=== PATIENT | female | born 1950 | race Two or more races ===

== ENCOUNTER 2023-01-01 20:00 | Emergency (ER) | payer MEDICARE, OTHER ==
[~2023-01-01] VITALS: Ht 167.6 cm; Wt 79.4 kg
--- NOTE | 2023-01-01 20:15 | NUR ---
[id number] FROM HOME FOR VOMITING X 2DAYS AND FEELING "SICK". PT AAOX4, IN NAD. PLACED COMFORTABLY IN BED, VITALS CHECKED.
--- NOTE | 2023-01-01 21:00 | NUR ---
ROD STEVENSON: [phone]
[2023-01-01] MEDS ORDERED: IV NS 0.9% 1,000 ML BAG IV ONE (22:30)
[2023-01-01] MEDS ORDERED: ONDANSETRON HCL/PF 4 MG/2 ML VIAL IVP ONE (22:30)
--- NOTE | 2023-01-01 22:55 | NUR ---
LAC #20G S/L BLOOD COLLECTED AND SENT TO LAB
--- NOTE | 2023-01-01 22:58 | NUR ---
PT TAKEN TO CT VIA [facility]
[2023-01-01] MEDS ORDERED: ONDANSETRON HCL/PF 4 MG/2 ML VIAL ONE (22:59)
[2023-01-01 23:05] LABS: BASOPHILS # (AUTO) 0.2 K/uL (0.0-0.2); BASOPHILS % (AUTO) 2.6 % (0.0-2.0); EOSINOPHILS % (AUTO) 2.4 % (0.0-6.0); HEMATOCRIT 41 % (39-51); HEMOGLOBIN 13.4 g/dL (13.5-17.5); LYMPHOCYTES # (AUTO) 1.9 K/uL (0.8-4.8); LYMPHOCYTES % (AUTO) 32.2 % (20.0-44.0); MEAN CORPUSCULAR HGB CONC 33 g/dl (31.0-36.0); MEAN CORPUSCULAR VOLUME 90 fL (80-96); MONOCYTES # (AUTO) 0.3 K/uL (0.1-1.30); MONOCYTES % (AUTO) 5.8 % (2.0-12.0); NEUTROPHILS # (AUTO) 3.4 K/uL (1.8-8.9); PLATELET COUNT (AUTO) 284 K/uL (150-450); RED BLOOD CELL COUNT(AUTO) 4.58 MIL/uL (4.5-6.0); WHITE BLOOD COUNT (AUTO) 5.9 K/uL (4.3-11.0)
[2023-01-01 23:11] LABS: CALCIUM, SERUM 9.5 mg/dL (8.5-10.1); CARBON DIOXIDE 27 mmol/L (21-32); CHLORIDE 99 mmol/L (98-107); CREATININE 0.9 mg/dL (0.6-1.3); GLUCOSE 237 mg/dL (74-106); POTASSIUM 4.3 mmol/L (3.5-5.1); SODIUM SERUM 137 mmol/L (136-145); UREA NITROGEN, BLOOD 11 mg/dL (7-18)
[2023-01-01 23:17] LABS: ALANINE AMINOTRANSFERASE 10 U/L (12-78); ALBUMIN 3.3 g/dL (3.4-5.0); ALKALINE PHOSPHATASE 77 U/L (46-116); ASPARTATE AMINOTRANSFERASE 12 U/L (15-37); BILIRUBIN,DIRECT 0.1 mg/dL (0.0-0.2); BILIRUBIN,TOTAL 0.8 mg/dL (0.2-1.0); TOTAL PROTEIN, SERUM 7.7 g/dL (6.4-8.2)
[2023-01-01] MEDS ORDERED: CT SWABBABLE VALVE TRANS SET 1 EA INFUS.SET MC ONE (23:27)
[2023-01-01] MEDS ORDERED: IV NS 0.9% 250 ML IV ONE (23:27)
[2023-01-01] MEDS ORDERED: IOHEXOL-300 100 ML VIAL IV ONE (23:27)
[2023-01-01 23:47] LABS: LIPASE < 10 U/L (73-393)
[2023-01-02] MEDS ORDERED: AMOX-430 PO (00:03)
[2023-01-02] MEDS ORDERED: PANT40TA49 PO (00:03)
--- NOTE | 2023-01-02 00:18 | NUR ---
[facility] ETA: 75-90 MIN HERMANN RICHTER: [phone]
[2023-01-02] MEDS ORDERED: ONDA4TAB11 PO (00:22)
--- NOTE | 2023-01-02 00:56 | NUR ---
[facility] AT BED SIDE. REPORT GIVEN. MADE AWARE
[2023-01-02 01:10] VITALS: BP 150/86
== END 2023-01-02 01:10 | disposition home or self-care (01) ==
LOC: EDSEX 20:02 → ER 20:02
DX: K20.90 Esophagitis, unspecified without bleeding (principal); K62.89 Other specified diseases of anus and rectum
CPT/HCPCS: 99285; 74177; 96374; 96361; 85025; 80048; 83690; 80076; J2405; J7030; J7050; Q9967